=== PATIENT | male | born 1940 | race Caucasian/White ===

== ENCOUNTER 2017-11-09 14:34 | Observation (INO) ==
[2017-11-09] MEDS ORDERED: 0.9 % SODIUM CHLORIDE 1,000 ML IV ONE ×2 (14:55→16:17)
--- NOTE | 2017-11-09 14:56 | Emergency Department Note ---
General Adult HPI - General Chief complaint: Blood Sugar Problem Stated complaint: Blood sugar Time Seen by Provider: 11/09/17 14:41 Source: patient Mode of arrival: ambulatory Limitations: no limitations - History of Present Illness HPI Narrative: 77-year-old male presents with hyperglycemia. He was seen yesterday for the same thing. He is newly uncontrolled diabetic. He took 10 units of Lantus last night and stated that he did not have to get up to use the restroom in the middle of the night like he usually does. He states he feels good but his blood sugar was 301 this morning fasting and then he ate and it went up to 556. He has chronic pancreatitis and is being worked up for that in [place]. He denies any symptoms such as shortness of breath nausea or vomiting. He feels a little foggy like his sugar is high. He previously was controlled with oral medications but had to stop 2 of them because they can cause pancreatitis. No fevers. He is trying to stay hydrated at home. He feels a lot better than yesterday. He has been working with the tobacco educator as well. - Related Data Home Medications Medication Instructions Recorded Confirmed Aspirin [Ecotrin] 81 mg PO HS 09/10/15 11/09/17 Folic Acid 1 mg PO DAILY 09/10/15 11/09/17 Multivitamin [Multi-Day Vitamins] 1 each PO DAILY 09/10/15 11/09/17 [place]-3 Fatty Acids/Fish Oil [Fish 1 each PO BID 09/10/15 11/09/17 Oil 1,000 mg Softgel] vitamin E 400 unit capsule 400 unit PO QDAY 06/22/17 11/09/17 Previous Rx's Medication Instructions Recorded allopurinol 300 mg tablet 300 mg PO DAILY #30 tab 08/14/17 gabapentin 300 mg capsule See Label Instructions PO BID #90 08/14/17 cap irbesartan 150 mg tablet 75 mg PO DAILY #15 tab 08/14/17 sertraline 50 mg tablet 50 mg PO DAILY #30 tab 08/14/17 simvastatin 20 mg tablet 20 mg PO DAILY #30 tab 08/14/17 valacyclovir 1 gram tablet 1,000 mg PO BID PRN #2 tab 08/14/17 blood-glucose meter kit See Dose Instructions .ROUTE 09/26/17 .MEDSUPPLY #1 each pioglitazone 30 mg tablet 30 mg PO QDAY #30 tab 11/02/17 Julia GILLETTE 24,000 units PO .COMPLEX #1 11/03/17 Insulin Glargine, Human [Lantus] 10 unit SQ HS #10 ml 11/08/17 Pen Needle, Diabetic [Insulin Pen 1 each MC DAILY #30 dis.needle 11/08/17 Needle] Allergies Allergy/AdvReac Type Severity Reaction Status Date / Time Paroxetine [From Paxil] AdvReac Intermediate Mental Verified 11/09/17 16:19 status changes metformin AdvReac Mild headaches Verified 11/09/17 16:19 Review of Systems All systems ED: reviewed and negative except as stated. Past Medical History - Past Medical History Medical history: Reports: DM, hyperlipidemia, hypertension, other (chronic pancreatitis) Psychiatric history: Reports: depression Surgical history ED: Reports: other (pacreatic biopsy) Family history: Reports: non-contributory - Social History smoking status: Never smoker Alcohol use: Reports: None (used to drink 2-3 drinks per night) Physical Exam Limitations: no limitations General appearance: alert, in no apparent distress Head: atraumatic Eye: Present: normal appearance. Absent: conjunctival injection Neck: Present: normal inspection, full ROM Chest: Present: normal inspection, symmetric chest wall rise Respiratory: Present: normal lung sounds bilaterally Cardiovascular: Present: regular rate, normal heart sounds Abdominal: Present: soft, normal bowel sounds. Absent: tenderness Extremities: Present: normal inspection, full ROM. Absent: pedal edema Neurological: Present: alert, oriented X3 Psychiatric: Present: normal affect, normal mood Skin: Present: warm, dry, intact Course Course Narrative: Will be admitted for observation and control of his diabetes Vital Signs Temperature 96.8 F L 11/09/17 14:35 Pulse Rate 82 11/09/17 14:35 Respiratory Rate 18 11/09/17 14:35 Blood Pressure 135/77 11/09/17 14:35 Pulse Oximetry (%) 99 11/09/17 14:35 Temperature 96.8 F L 11/09/17 17:22 Pulse Rate 72 11/09/17 17:22 Respiratory Rate 16 11/09/17 17:22 Blood Pressure 122/77 11/09/17 17:22 Pulse Oximetry (%) 98 11/09/17 17:22 Medical Decision Making - Lab Data Lab results reviewed: Yes I reviewed the patient's lab results. Result diagrams: 11/09/17 15:04 11/09/17 15:03 Lab Results 11/09/17 11/09/17 11/09/17 Range/Units 15:03 15:04 15:04 WBC 6.7 (4.5-11.0) K/mcL RBC 4.25 L (4.50-5.90) M/mcL Hgb 12.9 L (13.5-16.5) g/dL Hct 37.1 L (41.0-55.0) % POC Hct 36.0 L (41.0-55.0) % MCV 87.3 (80.0-100.0) fL MCH 30.2 (26.0-34.0) pg MCHC 34.6 (31.0-36.0) g/dL RDW 16.9 H (11.5-14.5) % Plt Count 134 L (140-440) K/mcL MPV 8.5 (7.4-10.4) fL Gran % 69.3 (38.0-78.0) % Lymph % (Auto) 22.9 (15.5-49.0) % [place] % (Auto) 5.5 (1.0-12.0) % Eos % (Auto) 2.2 (0.0-7.0) % Baso % (Auto) 0.1 (0.0-2.0) % Gran # 4.7 (1.8-8.0) K/mcL Lymph # (Auto) 1.5 (1.5-4.8) K/mcL [place] # (Auto) 0.4 (0.1-0.9) K/mcL Eos # (Auto) 0.1 (0.0-0.7) K/mcL Baso # (Auto) 0 (0.0-0.3) K/mcL POC Sodium 130 L (133-145) mmol/L Sodium 128 L (133-145) mmol/L POC Potassium 4.2 (3.3-5.1) mmol/L Potassium 4.4 (3.3-5.1) mmol/L POC Chloride 96 (96-108) mmol/L Chloride 96 (96-108) mmol/L Carbon Dioxide 19 L (22-30) mmol/L POC Total CO2 21 L (22-30) mmol/L Anion Gap 13.0 (8-16) POC BUN 25 H (8-23) mg/dl BUN 24 H (8-23) mg/dl Creatinine 0.7 (0.7-1.2) mg/dl POC Creatinine 0.6 L (0.7-1.2) mg/dl GFR Calculation 91 Glucose 544 H* (70-105) mg/dL POC Glucose 539 H* (70-105) mg/dL Calcium 8.6 (8.6-10.4) mg/dl POC WB Ioniz Calcium 1.20 (1.16-1.32) mmol/L Total Bilirubin 0.6 (0.0-1.0) mg/dL AST 10 (0-37) U/l ALT 9 (0-40) U/l Alkaline Phosphatase 76 (39-117) U/L Total Protein 5.8 L (5.9-8.4) gm/dL Albumin 3.8 (3.2-5.2) gm/dL Globulin 2.0 L (2.2-3.7) gm/dL Albumin/Globulin Ratio 1.9 (1.0-2.3) Beta-Hydroxybutyrate 0.69 H (< 0.27) mmol/L Urine Color Urine Appearance Urine pH (5.0-9.0) Ur Specific [place] (1.000-1.035) Urine Protein (NEG) mg/dL Urine Glucose (UA) (NEG) mg/dL Urine Ketones (NEG) mg/dL Urine Occult Blood (<0.03) mg/dL Urine Nitrate (NEG) Urine Bilirubin (NEG) mg/dL Urine Urobilinogen (NEG) mg/dL Ur Leukocyte Esterase (NEG) /uL Urine RBC (0-1) /hpf Urine WBC (0-4) /hpf Ur Squamous Epith Cells (0-4) /hpf Urine Bacteria (0) /hpf Urine Mucus (0) /hpf Ur Culture Indicated? 11/09/17 Range/Units 15:41 WBC (4.5-11.0) K/mcL RBC (4.50-5.90) M/mcL Hgb (13.5-16.5) g/dL Hct (41.0-55.0) % POC Hct (41.0-55.0) % MCV (80.0-100.0) fL MCH (26.0-34.0) pg MCHC (31.0-36.0) g/dL RDW (11.5-14.5) % Plt Count (140-440) K/mcL MPV (7.4-10.4) fL Gran % (38.0-78.0) % Lymph % (Auto) (15.5-49.0) % [place] % (Auto) (1.0-12.0) % Eos % (Auto) (0.0-7.0) % Baso % (Auto) (0.0-2.0) % Gran # (1.8-8.0) K/mcL Lymph # (Auto) (1.5-4.8) K/mcL [place] # (Auto) (0.1-0.9) K/mcL Eos # (Auto) (0.0-0.7) K/mcL Baso # (Auto) (0.0-0.3) K/mcL POC Sodium (133-145) mmol/L Sodium (133-145) mmol/L POC Potassium (3.3-5.1) mmol/L Potassium (3.3-5.1) mmol/L POC Chloride (96-108) mmol/L Chloride (96-108) mmol/L Carbon Dioxide (22-30) mmol/L POC Total CO2 (22-30) mmol/L Anion Gap (8-16) POC BUN (8-23) mg/dl BUN (8-23) mg/dl Creatinine (0.7-1.2) mg/dl POC Creatinine (0.7-1.2) mg/dl GFR Calculation Glucose (70-105) mg/dL POC Glucose (70-105) mg/dL Calcium (8.6-10.4) mg/dl POC WB Ioniz Calcium (1.16-1.32) mmol/L Total Bilirubin (0.0-1.0) mg/dL AST (0-37) U/l ALT (0-40) U/l Alkaline Phosphatase (39-117) U/L Total Protein (5.9-8.4) gm/dL Albumin (3.2-5.2) gm/dL Globulin (2.2-3.7) gm/dL Albumin/Globulin Ratio (1.0-2.3) Beta-Hydroxybutyrate (< 0.27) mmol/L Urine Color Straw Urine Appearance Clear Urine pH 5.0 (5.0-9.0) Ur Specific [place] 1.026 (1.000-1.035) Urine Protein Neg (NEG) mg/dL Urine Glucose (UA) >=500 A (NEG) mg/dL Urine Ketones 5/tr A (NEG) mg/dL Urine Occult Blood Neg (<0.03) mg/dL Urine Nitrate Neg (NEG) Urine Bilirubin Neg (NEG) mg/dL Urine Urobilinogen Neg (NEG) mg/dL Ur Leukocyte Esterase Neg (NEG) /uL Urine RBC < 1 (0-1) /hpf Urine WBC 0 (0-4) /hpf Ur Squamous Epith Cells 0 (0-4) /hpf Urine Bacteria 0 (0) /hpf Urine Mucus Few (0) /hpf Ur Culture Indicated? No Disposition Pt seen by BASKET OPERATOR/PA only: Yes Clinical Impression: Type 2 diabetes mellitus with hyperglycemia Disposition: Xfer As Inpt ([facility]) Condition: Good
[2017-11-09] MEDS ORDERED: INSULIN REGULAR, HUMAN 1 UNIT/0.01 ML UNIT IV ONE (15:21)
[2017-11-09 15:29] LABS: Basophils # (Auto) 0 K/mcL (0.0-0.3); Basophils % (Auto) 0.1 % (0.0-2.0); Eosinophils # (Auto) 0.1 K/mcL (0.0-0.7); Eosinophils % (Auto) 2.2 % (0.0-7.0); Granulocytes % (Auto) 69.3 % (38.0-78.0); Lymphocytes # (Auto) 1.5 K/mcL (1.5-4.8); Lymphocytes % (Auto) 22.9 % (15.5-49.0); Mean Cell Volume 87.3 fL (80.0-100.0); Mean Corpuscular HGB Conc 34.6 g/dL (31.0-36.0); Mean Corpuscular Hemoglobin 30.2 pg (26.0-34.0); Monocytes # (Auto) 0.4 K/mcL (0.1-0.9); Monocytes % (Auto) 5.5 % (1.0-12.0); Platelet Count 134 K/mcL (140-440); RBC 4.25 M/mcL (4.50-5.90); Red Cell Distribution Width 16.9 % (11.5-14.5)
[2017-11-09 15:51] LABS: ALT/SGPT 9 U/l (0-40); Albumin 3.8 gm/dL (3.2-5.2); Albumin/Globulin Ratio 1.9 (1.0-2.3); Alkaline Phosphatase 76 U/L (39-117); Blood Urea Nitrogen 24 mg/dl (8-23)
[2017-11-09 16:02] LABS: Appearance,Urine CLEAR; Bacteria,Urine 0 /hpf (0); Bilirubin,Urine NEG (NEG); Color,Urine STRAW; Glucose,Urine (UA) >=500 mg/dL (NEG); Leukocyte Esterase,Urine NEG /uL (NEG); Mucus,Urine FEW /hpf (0); Protein,Urine NEG (NEG); Specific Gravity,Urine 1.026 (1.000-1.035); Urine Blood NEG mg/dL (<0.03); Urine RBC < 1 /hpf (0-1); Urine Squamous Epithelial Cell 0 /hpf (0-4); Urine WBC 0 /hpf (0-4); Urobilinogen,Urine NEG (NEG)
[2017-11-09] MEDS ORDERED: DEXTROSE 31 GM ORAL.SUSP PO PRN (17:21)
[2017-11-09] MEDS ORDERED: DEXTROSE 50% 50 ML VIAL IV PRN (17:21)
[2017-11-09] MEDS ORDERED: ONDANSETRON 4 MG/2 ML VIAL IV PRN (17:21)
[2017-11-09] MEDS: INSULIN LISPRO 1 UNIT/0.01 ML UNIT SQ SCH ×3 (17:37→22:59)
--- NOTE | 2017-11-09 17:53 | XRay Report ---
HISTORY: Reason for Exam:hyperglycemia FINDINGS: The lungs are clear, without evidence of pneumonia or pleural effusion. The heart size, pulmonary vasculature and emelyn are normal. The aorta is tortuous. 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 There has been no change since 11/08/17. IMPRESSION: No acute abnormality Interpreted and Authenticated by: Robert Almaraz 11/09/17
--- NOTE | 2017-11-09 18:24 | Internal Med History&Physical ---
Medical - H&P: HPI Patient information: Note initiated : 11/09/17 at 6:17 pm Service Date, if different from initiated Date: [] Patient: Raúl Rock 77 y/o M admitted on 11/09/17 for Blood sugar. Chief Complaint: [] History of present illness: Mr. Rock is a 77 year old Male with h/o type 2 DM presents to the ER for evaluation of hyperglycemia The patient notes that for the last 2 months he has been having severe polyuria , polydipsia and polyphagia, he has been very thirsty and has been drinking gallons of orange juice, milk and pepsi (diet) to help quench his thirst, unfortunately this has not helped much The patient was seen in the ER yesterday for glucose > 500, and was treated with IV fluids, and sent home. He was given approx 30 units of insulin in the ER, but was sent home on 10 units lantus qhs The patient this AM noted his glucose to be 330, and was glad, but after having a breakfast, his glucose went up again > 500, the patient presented back to the ER as per the ER discharge instructions. The patient was then admitted to the hospital for further management He has been a diabetic for over a decade with good control with metformin it seems, he and his have very poor insight in terms of glucose managemnt and did not check glucose. He reports a1c of 7.2, recently. He has been having weakness and dizziness and his notes she advocated to stop the metformin as she thought that this was liekly source of his symptoms. The patent was then placed on janvia, which was stopped due to the history of pancreatitis and possible pancreatic tumor ( atypical cells on cytology according to family) - Constitutional Constitutional: Present: weight loss - Cardiovascular Cardiovascular: Present: dyspnea on exertion. Absent: chest pain - Respiratory Respiratory: Absent: wheezing, excessive phlegm production - Gastrointestinal Gastrointestinal: Absent: nausea, vomiting - Genitourinary Genitourinary: Present: urinary frequency - Neurological Neurological: Present: dizziness - Endocrine Endocrine: Present: polydipsia, polyphagia, polyuria Medical - H&P: PMH Medical history: Medical History (Last Updated 08/29/17 @ 11:37 by Vesta Mccracken) Cognitive changes (Acute) Dizziness (Resolved) Disequilibrium (Resolved) Pancreatic mass (Acute) Disc degeneration, lumbar (Chronic ~2009) Lumbar nerve root impingement (Chronic ~2009) Low folic acid (Chronic ~2009) Laceration of head (Chronic 11/07/12) Ingrown nail of great toe of right foot (Chronic ~04/16/12) Chest pain (Chronic ~2011) Panic disorder (Chronic) Fatigue (Chronic ~2013) Bruxism (Chronic) Generalized anxiety disorder (Chronic) Herpesviral vesicular dermatitis (Chronic) Metabolic syndrome (Chronic) Type 2 diabetes mellitus with diabetic neuropathy (Chronic) 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) Type 2 diabetes mellitus with hyperglycemia (Chronic) Chronic kidney disease, stage 2 (mild) (Chronic) assisted current use of oral hypoglycemic drug (Chronic) Arthritis (Chronic) Measles (Chronic) Mumps (Chronic) Gall stone (Chronic) Acute hemorrhoid (Chronic) SOB (shortness of breath) (Chronic ~04/19/17) Chronic diastolic heart failure (Chronic ~04/19/17) Vitreous degeneration (Chronic) Nuclear cataract (Chronic ~05/26/14) Hypersomnia (Chronic) Sleep apnea (Chronic) Compression fracture (Chronic ~2011) Vertigo (Chronic ~08/2016) Asymptomatic varicose veins (Chronic) Pleurisy without mention of effusion or current tuberculosis (Chronic) Peripheral neuropathy (Chronic) Osteoarthritis of spine (Chronic) Numbness and tingling of both lower extremities (Chronic) Lung nodule (Chronic 10/18/11) Low back pain (Chronic) Helicobacter pylori (H. pylori) infection (Resolved) Dyspnea (Chronic 2014) Diabetes mellitus type 2 with neurological manifestations (Chronic ~2011) Cardiac arrest (Chronic 10/18/11) Joint pain, knee (Chronic) Hyperlipidemia (Chronic ~2011) Hypertension, essential (Chronic ~1979) Gout (Chronic ~1989) DMII (diabetes mellitus, type 2) (Chronic ~2004) Daytime sleepiness (Chronic ~1989) Arthritis of knee (Chronic ~1999) Chest pain (Resolved) Gallbladder problem (Resolved ~1999) Hemorrhoids (Resolved) Ingrown nail (Resolved 04/16/12) Surgical history: Past Surgical History (Last Updated 08/29/17 @ 11:17 by Vesta Mccracken) H/O colonoscopy (Chronic) History of esophagogastroduodenoscopy (EGD) (Chronic ~2009) History of surgery (Chronic) H/O knee surgery (Resolved ~1999) History of cholecystectomy (Resolved) Hx of tonsillectomy (Resolved) Pertinent family history: Family History (Last Updated 08/29/17 @ 09:40 by Vesta Mccracken) Mother Brain cancer Hypertension, essential Father Hypertension, essential Gout Sister Dementia Joint problem Sister Lymphoma Leukemia Medical - H&P: Meds Home Medications Medication Instructions Recorded Confirmed Type Aspirin [Ecotrin] 81 mg PO HS 09/10/15 11/09/17 History Folic Acid 1 mg PO DAILY 09/10/15 11/09/17 History Multivitamin [Multi-Day Vitamins] 1 each PO DAILY 09/10/15 11/09/17 History [place]-3 Fatty Acids/Fish Oil [Fish 1 each PO BID 09/10/15 11/09/17 History Oil 1,000 mg Softgel] vitamin E 400 unit capsule 400 unit PO QDAY 06/22/17 11/09/17 History allopurinol 300 mg tablet 300 mg PO DAILY #30 tab 08/14/17 11/09/17 Rx gabapentin 300 mg capsule See Label Instructions PO BID #90 08/14/17 11/09/17 Rx cap irbesartan 150 mg tablet 75 mg PO DAILY #15 tab 08/14/17 11/09/17 Rx sertraline 50 mg tablet 50 mg PO DAILY #30 tab 08/14/17 11/09/17 Rx simvastatin 20 mg tablet 20 mg PO DAILY #30 tab 08/14/17 11/09/17 Rx valacyclovir 1 gram tablet 1,000 mg PO BID PRN #2 tab 08/14/17 11/09/17 Rx blood-glucose meter kit See Dose Instructions .ROUTE 09/26/17 10/03/17 Rx .MEDSUPPLY #1 each pioglitazone 30 mg tablet 30 mg PO QDAY #30 tab 11/02/17 11/09/17 Rx Julia GILLETTE 24,000 units PO .COMPLEX #1 11/03/17 11/09/17 Rx Insulin Glargine, Human [Lantus] 10 unit SQ HS #10 ml 11/08/17 11/09/17 Rx Pen Needle, Diabetic [Insulin Pen 1 each MC DAILY #30 dis.needle 11/08/17 Rx Needle] Allergies Allergy/AdvReac Type Severity Reaction Status Date / Time Paroxetine [From Paxil] AdvReac Intermediate Mental Verified 11/09/17 16:19 status changes metformin AdvReac Mild headaches Verified 11/09/17 16:19 Medical - H&P: Exam - Constitutional Vitals: Temp Pulse Resp BP Pulse Ox 96.8 F L 72 16 122/77 98 11/09/17 17:22 11/09/17 17:22 11/09/17 17:22 11/09/17 17:22 11/09/17 17:22 Exam: GENERAL: The patient is a well-developed, well-nourished in no apparent distress. Is alert and oriented x3. VITAL SIGNS: Reviewed and as noted elsewhere. HEENT: Head is normocephalic and atraumatic. Extraocular muscles are intact. Pupils are equal, round, and reactive to light. Nares appeared normal. Mouth appears any without lesions. Mucous membranes are moist. NECK: Normal to inspection, Supple, No lymphadenopathy or thyromegaly. LUNGS: Air entry equal on both sides, no wheezing, crackles or rhonchi noted. No accessory muscles of respiration HEART: Regular rate and rhythm normal, S1 and S2 heard, no Gallop, S3 or Rub Noted, No Gross murmur heard. ABDOMEN: Soft, nontender, and nondistended. Positive bowel sounds. No hepatosplenomegaly was noted. EXTREMITIES: No cyanosis, clubbing, rash, lesions or edema. NEUROLOGIC: Cranial nerves II through XII are grossly intact. Motor and Sensory System Grossly Intact PSYCHIATRIC: Normal affect, Normal Mood. Appropriate Behavior. SKIN: No ulceration or wounds noted, No jaundice, No rash noted. Medical - H&P: Reslt - Labs CBC & Chem 7: 11/09/17 15:04 11/09/17 15:03 Labs: Short CBC 11/09/17 Range/Units 15:04 WBC 6.7 (4.5-11.0) K/mcL Hgb 12.9 L (13.5-16.5) g/dL Hct 37.1 L (41.0-55.0) % Plt Count 134 L (140-440) K/mcL BMP 11/09/17 15:03 Sodium 128 L Potassium 4.4 Chloride 96 Carbon Dioxide 19 L BUN 24 H Creatinine 0.7 Glucose 544 H* Calcium 8.6 Liver Function 11/09/17 Range/Units 15:03 Total Bilirubin 0.6 (0.0-1.0) mg/dL AST 10 (0-37) U/l ALT 9 (0-40) U/l Alkaline Phosphatase 76 (39-117) U/L Albumin 3.8 (3.2-5.2) gm/dL Urine 11/09/17 Range/Units 15:41 Urine Color Straw Urine Appearance Clear Urine pH 5.0 (5.0-9.0) Ur Specific [place] 1.026 (1.000-1.035) Urine Protein Neg (NEG) mg/dL Urine Glucose (UA) >=500 A (NEG) mg/dL Medical - H&P: A/P - Narrative A/P Narrative: A/P Uncontrolled DM with hyperglycemia -IV fluids, -sq lantus 30 units qhs, moderate dose sliding scale insulin pre meal, -DM education -will need close follow up on discharge HTN resume home meds Pancreatitis/ pancreatic cyst vs tumor Follow up as outpatient check glucagon levels to see if there is a secreting tumor explaining sudden change in patients glucose control continue creon HLD continue statin DVT hep sq Diet carb restricted full code. Social History - Social History household members: spouse housing: house lives independently: Yes marital status: occupational status: retired occupation: product safety professional, management and social services counselor pets and animals: Yes other: Children-3 - Pets pets and animals: dog(s) - Dietary Habits well-balanced diet: daily or most days during the past year weight has: remained stable - Exercise physical activity: walking frequency: daily duration: < 15 minutes/day - Tobacco smoking status: Never smoker - Alcohol alcohol intake frequency: a few times a week - Substance use substance use type: does not use - Abi/Jeh[employer]ah[employer] Witness abi/tenriism: [employer] - Home Safety working smoke detector in home: Yes - Personal Safety victim of physical abuse: No victim of emotional abuse: No victim of sexual abuse: No
[2017-11-09] MEDS ORDERED: LACTATED RINGERS 1,000 ML IV SCH (18:30)
[2017-11-09] MEDS: 0.9 % SODIUM CHLORIDE 10 ML SYRINGE IV SCH (20:42)
[2017-11-09] MEDS: FISH OIL 1,000 MG CAPSULE PO SCH (20:42)
[2017-11-09 20:56] LABS: Appearance,Urine CLEAR; Bacteria,Urine 0 /hpf (0); Bilirubin,Urine NEG (NEG); Color,Urine STRAW; Glucose,Urine (UA) >=500 mg/dL (NEG); Leukocyte Esterase,Urine NEG /uL (NEG); Mucus,Urine FEW /hpf (0); Protein,Urine NEG (NEG); Urine Blood NEG mg/dL (<0.03); Urine RBC 1 /hpf (0-1); Urine Squamous Epithelial Cell 0 /hpf (0-4); Urine WBC < 1 /hpf (0-4); Urobilinogen,Urine NEG (NEG)
[2017-11-09] MEDS ORDERED: GABAPENTIN 300 MG CAPSULE PO SCH (21:00)
[2017-11-09] MEDS ORDERED: INSULIN GLARGINE, HUMAN 1 UNIT/0.01 ML SQ SCH ×3 (21:00)
[2017-11-09] MEDS ORDERED: valACYclovir 500 MG TABLET PO PRN (21:00)
[2017-11-09] MEDS ORDERED: ASPIRIN 81 MG TAB.CHEW PO SCH (21:00)
[2017-11-09] MEDS ORDERED: SIMVASTATIN 20 MG TABLET PO SCH (21:00)
[2017-11-10] MEDS: 0.9 % SODIUM CHLORIDE 10 ML SYRINGE IV SCH (05:57)
[2017-11-10 07:12] LABS: Basophils # (Auto) 0 K/mcL (0.0-0.3); Basophils % (Auto) 0.2 % (0.0-2.0); Eosinophils # (Auto) 0.2 K/mcL (0.0-0.7); Eosinophils % (Auto) 2.4 % (0.0-7.0); Granulocytes % (Auto) 69.5 % (38.0-78.0); Lymphocytes # (Auto) 1.5 K/mcL (1.5-4.8); Lymphocytes % (Auto) 21.2 % (15.5-49.0); Mean Cell Volume 88.4 fL (80.0-100.0); Mean Corpuscular HGB Conc 34.4 g/dL (31.0-36.0); Mean Corpuscular Hemoglobin 30.4 pg (26.0-34.0); Monocytes # (Auto) 0.5 K/mcL (0.1-0.9); Monocytes % (Auto) 6.7 % (1.0-12.0); Platelet Count 136 K/mcL (140-440); RBC 3.85 M/mcL (4.50-5.90)
[2017-11-10 07:38] LABS: Blood Urea Nitrogen 15 mg/dl (8-23)
[2017-11-10 07:39] LABS: ALT/SGPT 9 U/l (0-40); Albumin 3.3 gm/dL (3.2-5.2); Albumin/Globulin Ratio 1.7 (1.0-2.3); Alkaline Phosphatase 60 U/L (39-117); Bilirubin,Direct < 0.2 mg/dL (0.0-0.3); Gamma Glutamyl Transpeptidase 10 U/L (8-61); Uric Acid 3.7 mg/dL (2.5-8.0)
[2017-11-10] MEDS: INSULIN LISPRO 1 UNIT/0.01 ML UNIT SQ SCH ×2 (07:50→11:59)
[2017-11-10] MEDS ORDERED: LIPASE/PROTEASE/AMYLASE 1 CAP CAPSULE PO SCH (08:00)
[2017-11-10] MEDS: FISH OIL 1,000 MG CAPSULE PO SCH (08:22)
[2017-11-10] MEDS ORDERED: FOLIC ACID 1 MG TABLET PO SCH (09:00)
[2017-11-10] MEDS ORDERED: VITAMIN E (DL,TOCOPHERYL ACET) 400 UNIT CAPSULE PO SCH (09:00)
[2017-11-10] MEDS ORDERED: SERTRALINE 50 MG TABLET PO SCH (09:00)
[2017-11-10] MEDS ORDERED: ALLOPURINOL 300 MG TABLET PO SCH (09:00)
[2017-11-10] MEDS ORDERED: GABAPENTIN 300 MG CAPSULE PO SCH (09:00)
[2017-11-10] MEDS ORDERED: MULTIVIT,THER IRON,CA,FA & MIN 1 TABLET PO SCH (09:00)
[2017-11-10] MEDS ORDERED: PIOGLITAZONE 15 MG TABLET PO SCH (09:00)
[2017-11-10] MEDS ORDERED: LOSARTAN 25 MG TABLET PO SCH (09:00)
--- NOTE | 2017-11-10 12:35 | Discharge Summary ---
Medical - DS: Prov Patient information: Note initiated : 11/10/17 at 12:28 pm Service Date, if different from initiated Date: [] Patient: Raúl Rock 77 y/o M admitted on 11/09/17 for Blood Sugar/Type 2 Diabetes w/ Hyperglycemia. Chief Complaint: [] Date of admission: 11/09/17 17:20 Discharge date: 11/10/17 Primary care physician: Felicia Hammonds Admitting clinician: Atif Yousif Consults: 11/09/17 15:34 Consult to Physician [CONS] Stat Comment: Consulting Provider: Atif Yousif Reason For Exam: Physician to Consult Discharging clinician: Atif Yousif Medical - DS: Meds - Discharge Medications Prescriptions: Insulin Glargine,Hum.rec.anlog [Lantus Solostar] 30 unit SQ QHS #1 insuln.pen Insulin Lispro [Humalog Kwikpen U-200] 1 - 14 unit SQ AC #5 insuln.pen Pen Needle, Diabetic [Insulin Pen Needle] 1 each Q6H #240 dis.needle Active and Home Medications: Home Medications Aspirin [Ecotrin] 81 mg PO HS 09/10/15 [History Confirmed 11/09/17 Last Taken 21:00] Folic Acid 1 mg PO DAILY 09/10/15 [History Confirmed 11/09/17 Last Taken 08:00] Multivitamin [Multi-Day Vitamins] 1 each PO DAILY 09/10/15 [History Confirmed Last Taken 11/09/17 08:00] Hiram-3 Fatty Acids/Fish Oil [Fish Oil 1,000 mg Softgel] 1 each PO BID 09/10/15 [History Confirmed 11/09/17 Last Taken 11/09/17 08:00] vitamin E 400 unit capsule 400 unit PO QDAY 06/22/17 [History Confirmed Last Taken 11/09/17 08:00] allopurinol 300 mg tablet 300 mg PO DAILY #30 tab 08/14/17 [Rx Confirmed Last Taken 11/09/17 08:00] gabapentin 300 mg capsule See Label Instructions PO BID #90 cap 08/14/17 [Rx Confirmed 11/09/17 Last Taken 11/09/17 08:00] irbesartan 150 mg tablet 75 mg PO DAILY #15 tab 08/14/17 [Rx Confirmed 11/09/17 Last Taken 11/09/17 08:00] sertraline 50 mg tablet 50 mg PO DAILY #30 tab 08/14/17 [Rx Confirmed 11/09/17 Last Taken 11/09/17 08:00] simvastatin 20 mg tablet 20 mg PO DAILY #30 tab 08/14/17 [Rx Confirmed 11/09/17 Last Taken 11/09/17 08:00] valacyclovir 1 gram tablet 1,000 mg PO BID PRN #2 tab 08/14/17 [Rx Confirmed 04/21 Last Taken Unknown] blood-glucose meter kit See Dose Instructions .ROUTE .MEDSUPPLY #1 each [Rx Confirmed 10/03/17 Last Taken Unknown] pioglitazone 30 mg tablet 30 mg PO QDAY #30 tab 11/02/17 [Rx Confirmed 11/09/17 Last Taken 11/09/17 08:00] Julia GILLETTE 24,000 units PO .COMPLEX #1 11/03/17 [Rx Confirmed 11/09/17 Last Taken 11/09/17 08:00] Insulin Glargine, Human [Lantus] 10 unit SQ HS #10 ml 11/08/17 [Rx Confirmed 04/21 Last Taken Unknown] Pen Needle, Diabetic [Insulin Pen Needle] 1 each MC DAILY #30 dis.needle [Rx Confirmed 11/09/17 Last Taken Unknown] Medical - DS: Hosp Hospital course: Mr. Rock is a 77 year old Male with h/o type 2 DM presents to the ER for evaluation of hyperglycemia. The patient notes that for the last 2 months he has been having severe polyuria, polydipsia and polyphagia, he has been very thirsty and has been drinking gallons of orange juice, milk and pepsi (diet) to help quench his thirst, unfortunately this has not helped much The patient was seen in the ER yesterday for glucose > 500, and was treated with IV fluids, and sent home. He was given approx 30 units of insulin in the ER, but was sent home on 10 units lantus qhs The patient this AM noted his glucose to be 330, and was glad, but after having a breakfast, his glucose went up again > 500, the patient presented back to the ER as per the ER discharge instructions. The patient was then admitted to the hospital for further management He has been a diabetic for over a decade with good control with metformin it seems, he and his have very poor insight in terms of glucose managemnt and did not check glucose. He reports a1c of 7.2, recently. He has been having weakness and dizziness and his notes she advocated to stop the metformin as she thought that this was liekly source of his symptoms. 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 I would expect the patient to have few high values in the first few days as his dose of insulin is titrated to achieve optimal glucose values. The of the stay in the hospital was uneventful, no changes made to his home med list, except insulin changes. Discharge diagnosis: Hyperglycemia. - Time Spent with Patient Total time spent providing and/or coordinating discharge services: Greater than 30 minutes Medical - DS: Exam - Constitutional Vitals: Vital Signs Temp Pulse Pulse Resp BP BP Pulse Ox 11/10/17 12:00 97.4 F 84 16 121/85 98 11/10/17 06:40 97.8 F 16 93/61 98 11/10/17 04:00 97.4 F 62 14 102/68 97 11/10/17 00:00 98.1 F 70 14 109/56 97 11/09/17 19:57 97.9 F 78 16 123/62 96 11/09/17 17:22 96.8 F L 72 16 122/77 98 11/09/17 17:20 98.0 F 66 20 106/66 98 11/09/17 16:37 72 122/77 98 11/09/17 16:16 73 16 122/77 94 11/09/17 16:03 69 11 L 124/70 96 11/09/17 16:01 74 13 124/70 96 11/09/17 15:46 71 0 L 128/75 97 11/09/17 15:41 69 10 L 121/88 97 11/09/17 15:33 79 10 L 121/88 100 11/09/17 15:16 76 12 120/64 95 11/09/17 14:49 75 12 98 11/09/17 14:46 84 13 112/74 94 11/09/17 14:40 81 135/77 99 11/09/17 14:35 96.8 F L 82 18 135/77 99 Intake and Output 11/09/17 11/10/17 11/10/17 21:59 05:59 13:59 Intake Total 2240 / 2240 1550 / 1550 Output Total 450 / 450 1900 / 1900 Balance 1790 / 1790 -350 / -350 Intake: IV 1999 / 1999 1000 / 1000 Sodium Chloride 0.9% 1,000 ml @ 2000 / 2000 Wide Open IV BOLUS ONE Rx#: [id number] Lactated Ringers 1,000 ml @ 150 1000 / 1000 mls/hr IV .Q6H40M [facility] Rx#: [id number] Oral 240 / 240 550 / 550 Output: Void Amount 450 / 450 1900 / 1900 Other: Meal Dinner Percent of Meal Consumed 100% Feeding Ability Independent # Voids 1 Weight 210 lb 1.6 oz 210 lb 1.6 oz Patient Weight 11/11/17 05:59 Weight 210 lb 1.6 oz Additional comments: Constitutional; Afebrile, cooperative, alert, not in distress. Neck- Midline trachea, supple Respiratory system: Air Entry equal on both sides, No crackles or wheezing, no rhonchi. CVS- Rate rhythm regular, S1,S2 heard, no gallop, no rub. Abdomen- Soft nontender abdomen, no organomegaly, no tenderness, no guarding or rigidity, EDUCATION OFFICER- AOOx3, moving all extremities, no gross focal deficit noted. Medical - DS: Data Procedures and tests throughout hospitalization: Chest x ray IMPRESSION: No acute abnormality Labs on day of discharge: Labs from last 24 hours 11/10/17 11/10/17 11/10/17 06:09 06:09 06:09 WBC 7.1 RBC 3.85 L Hgb 11.7 L Hct 34.1 L POC Hct MCV 88.4 MCH 30.4 MCHC 34.4 RDW 17.0 H Plt Count 136 L MPV 8.5 Gran % 69.5 Lymph % (Auto) 21.2 Duc[place]ne % (Auto) 6.7 Eos % (Auto) 2.4 Baso % (Auto) 0.2 Gran # 4.9 Lymph # (Auto) 1.5 [place] # (Auto) 0.5 Eos # (Auto) 0.2 Baso # (Auto) 0 POC Sodium Sodium 141 POC Potassium Potassium 3.6 POC Chloride Chloride 108 Carbon Dioxide 22 POC Total CO2 Anion Gap 11.0 POC BUN BUN 15 Creatinine 0.7 POC Creatinine GFR Calculation 91 Glucose 118 H POC Glucose Uric Acid 3.7 Calcium 8.7 POC WB Ioniz Calcium Phosphorus 3.5 Magnesium 1.9 Total Bilirubin 0.3 Direct Bilirubin < 0.2 GGT 10 AST 11 ALT 9 Alkaline Phosphatase 60 Lactate Dehydrogenase 128 Total Protein 5.2 L Albumin 3.3 Globulin 1.9 L Albumin/Globulin Ratio 1.7 Triglycerides 168 H Glucagon Pending Beta-Hydroxybutyrate Urine Color Urine Appearance Urine pH Ur Specific [place] Urine Protein Urine Glucose (UA) Urine Ketones Urine Occult Blood Urine Nitrate Urine Bilirubin Urine Urobilinogen Ur Leukocyte Esterase Urine RBC Urine WBC Ur Squamous Epith Cells Urine Bacteria Urine Mucus Ur Culture Indicated? 11/09/17 11/09/17 11/09/17 19:47 15:41 15:04 WBC RBC Hgb Hct POC Hct MCV MCH MCHC RDW Plt Count MPV Gran % Lymph % (Auto) [place] % (Auto) Eos % (Auto) Baso % (Auto) Gran # Lymph # (Auto) [place] # (Auto) Eos # (Auto) Baso # (Auto) POC Sodium Sodium POC Potassium Potassium POC Chloride Chloride Carbon Dioxide POC Total CO2 Anion Gap POC BUN BUN Creatinine POC Creatinine GFR Calculation Glucose POC Glucose Uric Acid Calcium POC WB Ioniz Calcium Phosphorus Magnesium Total Bilirubin Direct Bilirubin GGT AST ALT Alkaline Phosphatase Lactate Dehydrogenase Total Protein Albumin Globulin Albumin/Globulin Ratio Triglycerides Glucagon Beta-Hydroxybutyrate 0.69 H Urine Color Straw Straw Urine Appearance Clear Clear Urine pH 5.0 5.0 Ur Specific [place] 1.020 1.026 Urine Protein Neg Neg Urine Glucose (UA) >=500 A >=500 A Urine Ketones Neg 5/tr A Urine Occult Blood Neg Neg Urine Nitrate Neg Neg Urine Bilirubin Neg Neg Urine Urobilinogen Neg Neg Ur Leukocyte Esterase Neg Neg Urine RBC 1 < 1 Urine WBC < 1 0 Ur Squamous Epith Cells 0 0 Urine Bacteria 0 0 Urine Mucus Few Few Ur Culture Indicated? No No 11/09/17 11/09/17 15:04 15:03 WBC 6.7 RBC 4.25 L Hgb 12.9 L Hct 37.1 L POC Hct 36.0 L MCV 87.3 MCH 30.2 MCHC 34.6 RDW 16.9 H Plt Count 134 L MPV 8.5 Gran % 69.3 Lymph % (Auto) 22.9 [place] % (Auto) 5.5 Eos % (Auto) 2.2 Baso % (Auto) 0.1 Gran # 4.7 Lymph # (Auto) 1.5 [place] # (Auto) 0.4 Eos # (Auto) 0.1 Baso # (Auto) 0 POC Sodium 130 L Sodium 128 L POC Potassium 4.2 Potassium 4.4 POC Chloride 96 Chloride 96 Carbon Dioxide 19 L POC Total CO2 21 L Anion Gap 13.0 POC BUN 25 H BUN 24 H Creatinine 0.7 POC Creatinine 0.6 L GFR Calculation 91 Glucose 544 H* POC Glucose 539 H* Uric Acid Calcium 8.6 POC WB Ioniz Calcium 1.20 Phosphorus Magnesium Total Bilirubin 0.6 Direct Bilirubin GGT AST 10 ALT 9 Alkaline Phosphatase 76 Lactate Dehydrogenase Total Protein 5.8 L Albumin 3.8 Globulin 2.0 L Albumin/Globulin Ratio 1.9 Triglycerides Glucagon Beta-Hydroxybutyrate Urine Color Urine Appearance Urine pH Ur Specific [place] Urine Protein Urine Glucose (UA) Urine Ketones Urine Occult Blood Urine Nitrate Urine Bilirubin Urine Urobilinogen Ur Leukocyte Esterase Urine RBC Urine WBC Ur Squamous Epith Cells Urine Bacteria Urine Mucus Ur Culture Indicated? Medical - DS: A/P - Patient/Caregiver Discharge Instructions Activity: increase activity as tolerated Diet: Consistent Carbohydrate Additional Instructions: Follow up with Ms CHERYL CASAS on Monday and she will help optimize your glucose Follow up with your PCP early next week. I have started you off on a long acting and short acting regime of insulin. This is just a start till you see Cheryl and your Regular doctor, they will further optimize your insulin regime. If your blood glucose values are less than 100 on consistent basis, use the low dose sliding scale regime for the before meal insulin, If your glucose values are consistently higher than 300, you can use the high dose sliding scale regime for before meal insulin. Call the PCP office or go to the ER if your glucose values are consistently > 400. Keep your self well hydrated with water, no sugary juices, no fruit drinks, no milk, Just regular water. Drink at least 64Oz of water a day Take insulin as instructed Take 3 meals a day, avoid snacking in between as this may adversely affect your glucose values Follow the dietary instructions given to you by the diabetes education. - Follow up Plan Follow up with: Felicia Hammonds DNP, TECHNICAL SUPPORT REPRESENTATIVE [Primary Care Provider] - 11/16/17 11:30 am (The office will call you with an appointment before the if they have a cancelation.) Disposition: Home, Self-Care Prognosis: Fair Rehab Potential: Fair I certify that the patient requires SNF services: No Overall status at discharge: patient is progressing back to baseline
== END 2017-11-10 14:15 | disposition home or self-care (01) ==
LOC: MEDSUR 14:34 → ED 14:34 → MEDSUR 17:10
PROVIDERS: ADMIT Internal Medicine; ATTEND Internal Medicine

== ENCOUNTER 2019-03-18 05:03 | Inpatient (IN) ==
[2019-03-12 13:35] LABS: Appearance,Urine HAZY; Bilirubin,Urine NEG (NEG); Color,Urine AMBER; Culture Indicated,Urine NO; Glucose,Urine (UA) NEGATIVE (NEG); Ketones,Urine NEG (NEG); Leukocyte Esterase,Urine NEG /uL (NEG); Nitrate,Urine NEG (NEG); Protein,Urine NEG (NEG); Specific Gravity,Urine 1.028 (1.000-1.035); Urine Blood NEG mg/dL (<0.03); Urobilinogen,Urine NEG (NEG)
[2019-03-12 13:38] LABS: Blood Urea Nitrogen 24 mg/dl (8-23); Calcium 9.1 mg/dl (8.6-10.4); Carbon Dioxide 22 mmol/L (22-30); Chloride 102 mmol/L (96-108); Glomerular Filtration Rate 82; Glucose 300 mg/dL (70-105)
[2019-03-12 13:57] LABS: Estimated Average Glucose(eAG) 174 mg/dL; Hemoglobin A1C 7.7 % HGB (4.0-6.0)
[2019-03-14 11:16] LABS: Basophils # (Auto) 0 K/mcL (0.0-0.3); Basophils % (Auto) 0.4 % (0.0-2.0); Eosinophils # (Auto) 0.1 K/mcL (0.0-0.7); Eosinophils % (Auto) 1.6 % (0.0-7.0); Granulocytes % (Auto) 65.6 % (38.0-78.0); Hematocrit 39.5 % (41.0-55.0); Hemoglobin 13.1 g/dL (13.5-16.5); Lymphocytes % (Auto) 27.2 % (15.5-49.0); Mean Cell Volume 86.3 fL (80.0-100.0); Mean Corpuscular HGB Conc 33.1 g/dL (31.0-36.0); Mean Platelet Volume 7.9 fL (7.4-10.4); Monocytes # (Auto) 0.4 K/mcL (0.1-0.9); Monocytes % (Auto) 5.2 % (1.0-12.0); Platelet Count 122 K/mcL (140-440); RBC 4.57 M/mcL (4.50-5.90); Red Cell Distribution Width 16.9 % (11.5-14.5); WBC 7.4 K/mcL (4.5-11.0)
[2019-03-18] MEDS ORDERED: ACETAMINOPHEN 500 MG TABLET PO SCH (06:00)
[2019-03-18] MEDS ORDERED: oxyCODONE 10 MG TAB.ER.12H PO SCH (06:00)
[2019-03-18] MEDS ORDERED: ceFAZolin 2 GM in DEXTROSE 5% IN WATER 50 ML IV SCH (06:00)
[2019-03-18] MEDS ORDERED: 0.9 % SODIUM CHLORIDE 9 ML, KETOROLAC 30 MG, ROPIVACAINE HCL/PF 49.5 ML, EPINEPHrine 0.... IJ SCH (06:00)
[2019-03-18] MEDS ORDERED: CELECOXIB 200 MG CAPSULE PO SCH (06:00)
[2019-03-18] MEDS ORDERED: GABAPENTIN 300 MG CAPSULE PO SCH ×2 (06:00→17:00)
[2019-03-18] MEDS ORDERED: GENTAMICIN SULFATE 800 MG/20 ML VIAL IR ONE (07:08)
[2019-03-18] MEDS ORDERED: KETAMINE 100 MG/ML ML IV ONE (07:35)
[2019-03-18] MEDS ORDERED: TRANEXAMIC ACID 1,000 MG/10 ML VIAL IV ONE (07:35)
[2019-03-18] MEDS ORDERED: DEXAMETHASONE 10 MG/ML VIAL IV ONE (07:35)
[2019-03-18] MEDS ORDERED: FAMOTIDINE/PF 20 MG/2 ML VIAL IV ONE (07:35)
[2019-03-18] MEDS ORDERED: GLYCOPYRROLATE 0.2 MG/ML VIAL IV ONE (07:35)
[2019-03-18] MEDS ORDERED: ROPIVACAINE HCL/PF 20 ML VIAL IJ ONE (07:35)
[2019-03-18] MEDS ORDERED: MIDAZOLAM 2 MG/2 ML VIAL IV ONE (07:35)
[2019-03-18] MEDS ORDERED: ONDANSETRON 4 MG/2 ML VIAL IV ONE (07:35)
[2019-03-18] MEDS ORDERED: FLEETS ADULT ENEMA PR PRN (09:13)
[2019-03-18] MEDS ORDERED: BISACODYL 10 MG SUPP.RECT PR PRN (09:13)
[2019-03-18] MEDS ORDERED: BENZOCAINE/MENTHOL 1 LOZENGE PO PRN (09:13)
[2019-03-18] MEDS ORDERED: HYDROmorphone 2 MG/ML VIAL IV PRN (09:13)
[2019-03-18] MEDS ORDERED: ONDANSETRON 4 MG/2 ML VIAL IV PRN ×2 (09:13→09:22)
[2019-03-18] MEDS ORDERED: TRANEXAMIC ACID 1,000 MG/10 ML VIAL IV SCH (09:13)
[2019-03-18] MEDS ORDERED: ACETAMINOPHEN 325 MG TABLET PO PRN (09:13)
[2019-03-18] MEDS ORDERED: POLYETHYLENE GLYCOL 3350 17 GM PACKET PO PRN (09:13)
[2019-03-18] MEDS ORDERED: MAGNESIUM HYDROXIDE 30 ML ORAL.SUSP PO PRN (09:13)
--- NOTE | 2019-03-18 09:13 | Brief Operative Note ---
Date of procedure: 03/18/19 Pre-op diagnosis: Right knee djd severe Post-op diagnosis: same Procedure: right robotic tka Grafts/Implants: Yes Anesthesia: CARLOSA Surgeon: Roberth Israel Sergeant Missile Crewman: Dru Mckeon Estimated blood loss (cc): 50 Tourniquet Time (Minutes): 60 Specimens Removed/Pathology: none sent Condition: stable Disposition: PACU
[2019-03-18] MEDS ORDERED: diphenhydrAMINE 50 MG/ML VIAL IV PRN (09:22)
[2019-03-18] MEDS ORDERED: FLUMAZENIL 0.1 MG/ML ML IV PRN (09:22)
[2019-03-18] MEDS ORDERED: fentaNYL 100 MCG/2 ML VIAL IV PRN (09:22)
[2019-03-18] MEDS ORDERED: METOPROLOL TARTRATE 5 MG/5 ML VIAL IV PRN (09:22)
[2019-03-18] MEDS ORDERED: MEPERIDINE 25 MG/ML SYRINGE IV PRN (09:22)
[2019-03-18] MEDS ORDERED: METHOCARBAMOL 1,000 MG/10 ML VIAL IV PRN (09:22)
[2019-03-18] MEDS ORDERED: NALOXONE HCL 0.4 MG/ML VIAL IV PRN (09:22)
[2019-03-18] MEDS ORDERED: IPRATROPIUM/ALBUTEROL 3 ML AMPUL.NEB NEB PRN (09:22)
[2019-03-18] MEDS ORDERED: ATROPINE SULFATE 0.4 MG/ML VIAL IV PRN (09:22)
[2019-03-18] MEDS ORDERED: ePHEDrine 50 MG/ML AMPUL IV PRN (09:22)
[2019-03-18] MEDS ORDERED: LACTATED RINGERS 1,000 ML IV SCH (09:30)
--- NOTE | 2019-03-18 09:44 | Operative Note ---
DATE OF OPERATION: 03/18/2019 PREOPERATIVE DIAGNOSIS: Right knee degenerative arthritis. POSTOPERATIVE DIAGNOSIS: Right knee degenerative arthritis. PROCEDURE: Right total knee arthroplasty using the Placido robot. SURGEON: Roberth Israel M.D. SALES CONTRACTOR: Dru Mckeon PA-C. The PA's assistance was required for the safe and efficient completion of the entire case. This provider's expertise and technical skill were required throughout the case. The PA assisted with preoperative coordination, intraoperative retraction, wound closure, dressing and splint application, as well as postoperative documentation and care coordination. ANESTHESIA: General LMA anesthesia. COMPLICATIONS: None. TOURNIQUET TIME: 60 minutes. DESCRIPTION OF PROCEDURE: The patient was brought to the operating room and put to sleep with general anesthesia. Once asleep, the patient had the right leg sterilely prepped and draped in the usual sterile fashion. A timeout was performed and confirmed this as the operative site. Once this was done, we then placed Ioban over the skin and made a midline incision, midvastus approach performed. We confirmed the operative site, and the need for the ___. There was quite severe varus malalignment. Pins above and below the knee were placed. We registered the center of hip rotation. This showed the need to have a 10 degree flexion contracture, as well as 10 degrees of varus. Once this was done, we then balanced the knee and the components to fit his knee based on the tightness of the ligaments both at 90 degrees and 15 degrees. Once these were balanced perfectly, we then brought in the robot, made the bony cuts, and placed the implant. We removed spurs and soft tissue that were impinging. We removed the remnants of the meniscus and spurs posteriorly were removed. We elevated the medial collateral ligament to make this perfectly tight. We trialed a size 9, 10 and 11. The 11 poly seemed to fit which we had templated for. This gained full extension, full flexion. We irrigated thoroughly. We then prepared the patella measuring 26 mm. This was cut to 15 mm and a 39 mm patellar button was placed. We irrigated thoroughly and cemented into place the above-mentioned implants. Excess cement was removed. The patient tolerated this well. Midvastus approach closed with a Stratafix x2. Skin was closed with Stratafix and adhesive closure. Tourniquet time was 60 minutes. Blood loss about 50 mL. RBH:flavio Job ID: [id number] Doc ID: [id number] Roberth Israel MD
--- NOTE | 2019-03-18 10:36 | XRay Report ---
CLINICAL INFORMATION: Post-Op Total Knee COMPARISON: None. FINDINGS: Total knee prostheses is anatomically aligned. No osseous abnormality. Periarticular soft tissue swelling seen as expected. IMPRESSION: Negative Interpreted and Authenticated by: Valdez Donato 03/18/19
[2019-03-18] MEDS: 0.45 % SODIUM CHLORIDE 1,000 ML IV SCH ×2 (10:37→20:56)
[2019-03-18] MEDS ORDERED: SCOPOLAMINE 1 PATCH PATCH TOPICAL ONE (10:38)
[2019-03-18] MEDS: INSULIN LISPRO 1 UNIT/0.01 ML UNIT SQ SCH ×3 (11:02→20:55)
[2019-03-18] MEDS: LIPASE PO SCH ×3 (12:19→17:42)
[2019-03-18] MEDS: KETOROLAC 15 MG/ML VIAL IV SCH ×3 (12:19→23:31)
[2019-03-18] MEDS: PROTEASE PO SCH ×3 (12:19→17:42)
[2019-03-18] MEDS: AMYLASE PO SCH ×3 (12:19→17:42)
[2019-03-18] MEDS: 0.9 % SODIUM CHLORIDE 10 ML SYRINGE IV SCH ×2 (13:45→22:44)
[2019-03-18] MEDS: HYDROcodone/APAP 10/325MG TABLET PO PRN ×3 (14:09→22:34)
[2019-03-18] MEDS: ceFAZolin 1 GM VIAL IV SCH ×2 (14:10→22:34)
[2019-03-18] MEDS ORDERED: SIMVASTATIN 20 MG TABLET PO SCH (17:00)
[2019-03-18] MEDS ORDERED: SERTRALINE 50 MG TABLET PO SCH (17:00)
[2019-03-18] MEDS: DOCUSATE SODIUM 100 MG CAPSULE PO SCH (17:23)
[2019-03-18] MEDS: FISH OIL 1,000 MG CAPSULE PO SCH (17:23)
[2019-03-18] MEDS: ASPIRIN 325 MG ENTERIC COATED TABLET PO SCH (21:00)
[2019-03-18] MEDS ORDERED: TEMAZEPAM 15 MG CAPSULE PO PRN (21:00)
[2019-03-18] MEDS ORDERED: valACYclovir 1,000 MG TABLET PO PRN (21:00)
[2019-03-18] MEDS ORDERED: INSULIN GLARGINE, HUMAN 1 UNIT/0.01 ML SQ SCH (21:00)
[2019-03-18] MEDS ORDERED: SENNOSIDES 1 TABLET PO SCH (21:00)
[2019-03-19] MEDS: HYDROcodone/APAP 10/325MG TABLET PO PRN ×3 (02:31→11:23)
[2019-03-19] MEDS: KETOROLAC 15 MG/ML VIAL IV SCH ×2 (05:39→11:22)
[2019-03-19] MEDS: 0.9 % SODIUM CHLORIDE 10 ML SYRINGE IV SCH (05:40)
[2019-03-19] MEDS: 0.45 % SODIUM CHLORIDE 1,000 ML IV SCH (05:56)
--- NOTE | 2019-03-19 07:16 | Orthopedic Progress Note ---
Subjective Patient information: Note initiated : 03/19/19 at 7:15 am Service Date, if different from initiated Date: [] Patient: Raúl Rock 78 y/o M admitted on 03/18/19 for Right Total Knee Arthroplasty Placido. Chief Complaint: [Pt is stable this morning on post operative day 1 without any significant concerns or complaints. Patients vital signs have remained stable. Patients dressing is dry and is grossly intact from a neurovascular and motor standpoint. Patients 10 point ROS is otherwise negative. ] Objective Vital signs: Vital Signs Temp Pulse Resp BP Pulse Ox 03/19/19 04:00 97.7 F 71 20 105/56 96 03/18/19 23:14 98.3 F 86 16 101/65 96 03/18/19 19:09 98.2 F 88 20 115/47 100 03/18/19 15:20 97.4 F 78 18 118/59 99 03/18/19 12:29 74 113/57 99 03/18/19 11:59 71 104/60 99 03/18/19 11:29 74 109/47 100 03/18/19 11:14 69 115/61 100 03/18/19 10:58 68 125/64 97 03/18/19 10:29 96.4 F L 73 127/67 100 03/18/19 10:20 97.6 F 72 12 134/69 03/18/19 10:10 72 14 117/67 100 03/18/19 10:00 97.5 F 72 14 115/58 03/18/19 09:50 97.9 F 74 16 118/68 100 03/18/19 09:40 97.4 F 68 12 116/56 100 03/18/19 09:35 71 16 115/51 97 03/18/19 09:30 70 16 117/94 100 03/18/19 09:28 97 F 69 14 117/54 100 Intake and Output 03/18/19 03/19/19 03/19/19 21:59 05:59 13:59 Intake Total 1000 1000 Output Total 250 450 Balance 750 550 Intake: IV 1000 Sodium Chloride 0.45% 1,000 ml 1000 @ 100 mls/hr IV .Q10H [facility] Rx#: [id number] Oral 1000 Output: Void Amount 250 450 Other: Urine Appearance Clear Urine Color Bright Yellow Urine Odor Normal Weight 232 lb Intake & Output: Intake & Output 03/18/19 03/19/19 03/19/19 21:59 05:59 13:59 Intake Total 1000 1000 Output Total 250 450 Balance 750 550 Weight 232 lb Intake: IV 1000 Sodium Chloride 0.45% 1,000 ml 1000 @ 100 mls/hr IV .Q10H [facility] Rx#: [id number] Oral 1000 Output: Void Amount 250 450 Other: Urine Appearance Clear Urine Color Bright Yellow Urine Odor Normal Incision: Yes healing Incision clean and dry: Yes Dressing: Yes clean Weight bearing status: full Neurological exam IM: Yes motor sensory intact, Yes neurovascular intact Extremities exam IM: Yes Foot pink and warm, Yes neurovascular intact - Labs CBC & BMP: 03/19/19 04:11 03/12/19 10:44 Labs: 03/19/19 03/12/19 03/12/19 04:11 10:43 08:02 Hgb TNP 13.1 L Hct 31.1 L TNP 39.5 L Assessment and Plan (1) Hx of total knee arthroplasty The patient has been educated regarding dressing care, Physical Therapy recommendations, home exercises, restrictions, and follow up appointments. The patient has had all necessary DME prescribed. The patient has remained relatively stable during their hospital course. Leave Dermabond patch intact un til followup Status: Acute
--- NOTE | 2019-03-19 07:18 | Discharge Summary ---
Ortho Discharge - TKA - Patient Instructions Diet: Regular Diet Activity: activity as tolerated, weight bearing as tolerated Total Knee Protocol: For Total Knee: Start ROM AUNDREA with stationary bike or rocking chair. Work on gaining full extension of knee. Posterior dislocation precautions provided. Hip abductor strengthening and gait training instructions provided. Apply Cryocuff as instructed. Dressing Care: May shower in 2 days - Problem Maintenance (1) Hx of total knee arthroplasty Status: Acute - Follow Up Plan Follow Up Appointments: Dru Mckeon PA-C [Physician Telesales Advisor] - 04/02/19 9:20 am Disposition: Home, Self-Care Prognosis: Good Rehab Potential: Good I certify that the patient requires SNF services: No Overall status at discharge: patient is progressing back to baseline - Orders For Discharge Prescriptions: Aspirin [Ecotrin] 325 mg PO BID #60 tab.ec Docusate Sodium [Colace] 100 mg PO BID@0900,1700 #60 cap HYDROcodone/APAP 10/325MG [[place] 10-325Mg] 1 - 2 tab PO Q4HP PRN #75 tab PRN Reason: Pain Level 3-6
[2019-03-19] MEDS: INSULIN LISPRO 1 UNIT/0.01 ML UNIT SQ SCH (07:47)
[2019-03-19] MEDS: AMYLASE PO SCH (07:52)
[2019-03-19] MEDS: LIPASE PO SCH (07:52)
[2019-03-19] MEDS: PROTEASE PO SCH (07:52)
[2019-03-19] MEDS: FISH OIL 1,000 MG CAPSULE PO SCH (08:00)
[2019-03-19] MEDS: DOCUSATE SODIUM 100 MG CAPSULE PO SCH (08:01)
[2019-03-19] MEDS: ASPIRIN 325 MG ENTERIC COATED TABLET PO SCH (08:01)
[2019-03-19] MEDS ORDERED: LOSARTAN 25 MG TABLET PO SCH (09:00)
[2019-03-19] MEDS ORDERED: ALLOPURINOL 300 MG TABLET PO SCH (09:00)
[2019-03-19] MEDS ORDERED: GABAPENTIN 300 MG CAPSULE PO SCH (09:00)
[2019-03-19] MEDS ORDERED: VITAMIN E (DL,TOCOPHERYL ACET) 400 UNIT CAPSULE PO SCH (09:00)
[2019-03-19] MEDS ORDERED: FOLIC ACID 1 MG TABLET PO SCH (09:00)
[2019-03-19] MEDS ORDERED: MULTIVIT,THER IRON,CA,FA & MIN 1 TABLET PO SCH (09:00)
== END 2019-03-19 12:00 | disposition home or self-care (01) | DRG 554 ==
LOC: MEDSUR 05:03
PROVIDERS: ADMIT Orthopaedic Surgery; ATTEND Orthopaedic Surgery